=== PATIENT | female | born 1950 | race Two or more races ===

== ENCOUNTER 2022-07-28 10:52 | Emergency (ER) | payer OTHER ==
[~2022-07-28] VITALS: Ht 162.6 cm; Wt 81.6 kg
[2022-07-28] MEDS ORDERED: LEVO-T50 MCG PO (11:20)
[2022-07-28] MEDS ORDERED: COZAAR50 MG PO (11:20)
[2022-07-28] MEDS ORDERED: CRESTOR10 MG PO (11:21)
[2022-07-28] MEDS ORDERED: CELEBREX200MG PO (12:46)
== END 2022-07-28 14:17 | disposition home or self-care (01) ==
LOC: ER 10:52
DX: M79.605 Pain in left leg (principal); M79.604 Pain in right leg; I87.2 Venous insufficiency (chronic) (peripheral); E03.9 Hypothyroidism, unspecified; I10 Essential (primary) hypertension; M17.0 Bilateral primary osteoarthritis of knee

== ENCOUNTER 2022-07-31 07:15 | Outpatient (CLI) | payer OTHER ==
[~2022-07-31 07:15] MED LIST: CELEBREX200MG PO; COZAAR50 MG PO; CRESTOR10 MG PO; LEVO-T50 MCG PO
== END 2022-07-31 07:18 | disposition home or self-care (01) ==
LOC: NUCLEAR 07:15
PROVIDERS: ATTEND General Practice
DX: M79.606 Pain in leg, unspecified (principal)

== ENCOUNTER 2024-09-30 10:07 | Emergency (ER) | payer OTHER ==
[~2024-09-30] VITALS: Ht 162.6 cm; Wt 85.7 kg
[2024-09-30] MEDS ORDERED: ONDANSETRON HCL 2 MG/ML VIAL IV ONE (11:00)
[2024-09-30] MEDS ORDERED: 0.9 % SODIUM CHLORIDE 1,000 ML IV SCH (11:00)
[2024-09-30] MEDS ORDERED: ONDANSETRON HCL 2 MG/ML VIAL ONE (11:02)
[2024-09-30 11:39] LABS: ALBUMIN 3.4 gm/dL (3.4-5.0); BILIRUBIN TOTAL 0.82 mg/dL (0.3-1.2); CALCIUM 9.3 mg/dL (8.5-10.1); CREATININE SERUM 1.21 mg/dL (0.55-1.02); GFR 43.5; GLOBULINA 4.1 G/DL (2.4-3.5); POTASSIUM 4.41 mEq/L (3.5-5.1); TOTAL PROTEIN 7.5 gm/dL (6.4-8.2)
[2024-09-30 11:41] LABS: HEMATOCRIT 39.3 % (36.0-45.00); HEMOGLOBIN 13.4 g/dL (12.0-15.00); MEAN CELL VOLUME 89.6 fL (80.00-100.00); MEAN CORPUSCULAR HEMOGLOBIN 30.7 pg (27.00-32.0); MEAN CORPUSCULAR HGB CONC 34.2 g/dl (32.0-36.0); PLATELET COUNT 222 K/uL (150-450); RED BLOOD COUNT 4.38 M/uL (4.00-6.00); RED CELL DISTRIBUTION WIDTH 14.2 % (11.5-14.5)
[2024-09-30] MEDS ORDERED: LIDOCAINE HCL VISCOUS 20MG/ML BLIST 15ML MM ONE (15:55)
[2024-09-30] MEDS ORDERED: ZOFRAN8 MG PO (18:54)
[2024-09-30] MEDS ORDERED: PROTONIX40 MG PO (18:54)
== END 2024-09-30 21:16 | disposition home or self-care (01) ==
LOC: ER 10:07
PROVIDERS: Emergency Medicine
DX: K29.70 Gastritis, unspecified, without bleeding (principal); I10 Essential (primary) hypertension; E11.9 Type 2 diabetes mellitus without complications
CPT/HCPCS: 36415; 74022; 74176; 96365; 96366; 99284; J2405; J7030